=== PATIENT | female | born 1985 | race African-American/Black ===

== ENCOUNTER 2019-08-06 09:01 | Emergency (ER) | payer OTHER, SELFPAY ==
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
[2019-08-06 09:10] VITALS: BP 104/76; PULSE 73; RESP 16; TEMP 36.9; O2SAT 100
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
[2019-08-06 09:34] LABS: Basophils Percent Auto 0.7 % (0.2-1.2); Eosinophils Absolute Auto 0.3 K/mm3 (0-0.3); Eosinophils Percent Auto 4.3 % (0-4.4); Hematocrit 38.3 % (37.0-47.0); Hemoglobin 12.7 g/dL (12.0-15.0); Immature Granulocyte Absolute 0.01 K/mm3 (0.00-0.031); Immature Granulocyte Percent A 0.2 % (0-0.5); Lymphocytes Absolute Auto 2.37 K/mm3 (0.9-3.2); Lymphocytes Percent Auto 40.3 % (18.3-44.2); Mean Corpuscular HGB Conc 33.2 g/dl (32-36); Mean Corpuscular Hemoglobin 28.6 pg (26-34); Mean Corpuscular Volume 86.3 fl (80-100); Mean Platelet Volume 11.4 fl (7.4-10.4); Monocytes Absolute Auto 0.6 K/mm3 (0.1-0.6); Monocytes Percent Auto 10.4 % (2.6-8.5); Neutrophils Absolute Auto 2.6 K/mm3 (1.3-6.7); Neutrophils Percent Auto 44.1 % (45.5-73.1); Platelet Count Result 162 k/mm3 (150-375); Red Blood Count 4.44 M/mm3 (4.2-5.4); Red Cell Distribution Width 15.1 % (11.5-14.5); White Blood Count 5.9 K/mm3 (4.5-10.0)
[2019-08-06 09:44] LABS: INR 1.1; Prothrombin Time 13.4 Seconds (11.1-14.7)
[2019-08-06 09:45] LABS: Partial Thromboplastin Time 32.2 SECONDS (22.3-36.8)
[2019-08-06 09:46] LABS: Alanine Aminotransferase 14 U/L (4-35); Albumin Level 4.3 g/dL (3.5-5.1); Alkaline Phosphatase 80 U/L (38-126); Aspartate Amino Transferase 30 U/L (14-36); Bilirubin,Total 0.5 mg/dL (0.2-1.3); Blood Urea Nitrogen 8 mg/dL (7-17); Carbon Dioxide 27 mmol/L (22-30); Chloride 106 mmol/L (98-107); Estimated CRCL calculation 93 ml/min; Estimated Glomerular Filt Rate > 60; Glucose 91 mg/dL (65-105); Potassium 3.7 mmol/L (3.4-5.0); Sodium 138 mmol/L (137-145)
[2019-08-06 09:59] LABS: Add Urine Microscopic? YES; Appearance Urine Cloudy (Clear); Bacteria Urine Trace /hpf; Bilirubin Urine Negative (Negative); Blood Urine Negative (Negative); Color Urine Yellow (Yellow); Glucose Urine UA Negative (Negative); Ketones Urine Negative (Negative); Leukocyte Esterase Ur Negative LEU/UL (Negative); Mucus Urine Heavy /lpf; Nitrate Urine Negative (Negative); Protein Urine Negative (Negative); Specific Grav Ur 1.024 (1.001-1.035); Squamous Epithelial Cell Urine Few /hpf (Few); WBC Urine 0-3 /hpf
[2019-08-06] MEDS: KETOROLAC 30 MG/ML VIAL (*BKC) IV PUSH (10:28)
[2019-08-06 13:15] VITALS: BP 100/74; PULSE 62; RESP 16
== END 2019-08-06 13:15 | disposition home or self-care (01) ==
PROVIDERS: Emergency Provider Emergency Medicine; PCP Nurse Practitioner
DX: S39.92XA Unspecified injury of lower back, initial encounter (principal); V48.5XXA Car driver injured in noncollision transport accident in traffic accident, initial encounter
CPT/HCPCS: 36415; 74177; 80053; 81001; 81025; 85025; 85610; 85730; 96374; 99284; J1885; J2270; Q9967

== ENCOUNTER 2020-03-16 14:01 | Emergency (ER) | payer OTHER, SELFPAY ==
[2020-03-16 14:08] VITALS: BP 133/81; PULSE 104; RESP 16; TEMP 36.4; O2SAT 99
--- NOTE | 2020-03-16 14:35 | ED.GENADULT ---
HPI - General Adult General Chief complaint: Dental/Oral Stated complaint: DENTAL PAIN Time Seen by Provider: 03/16/20 14:35 Source: patient and RN notes reviewed Mode of arrival: ambulatory Limitations: no limitations History of Present Illness HPI narrative: 34-year-old -[place] female presents with complaints of dental pain for the past 2 days. Trinity reports she is waiting to have dental work done, this morning awaken with swollen face and increase dental pain. Ibuprofen and old Amoxicillin this morning with little relief. Denies any drainage. No fever. No jaw swelling. No neck swelling. No limitation with speaking or swallowing. Has history of dental caries. Has not seen a dentist recently. No dental trauma. No oral lesions. Exacerbating factors consist of chewing on RT side, eating and drinking cold items. No relieving factors. No dentures or bridges. Tolerating liquids well. The patient reports she have not been diagnosed with COVID-19. The patient reports she is not waiting for the results of a COVID-19 lab test. The patient reports she do not have chills, weakness, or fatigue. The patient reports she do not have a new or worsening cough or shortness of breath. Denies chest pain. The patient reports she do not have any rhinorrhea, congestion, sore throat, loss of taste or smell, nausea, vomiting, abdominal pain, and diarrhea. Denies recent traveling. Denies concerns for COVID-19 or exposures been home with limited outdoor exposure except for essential household needs, work, and return home. At this time, patient is not suspected of having COVID-19. Some parts of this dictation were generated by voice recognition software and may contain typographical and/or grammatical inaccuracies. Related Data Allergies Allergy/AdvReac Type Severity Reaction Status Date / Time Cat Dander Allergy Unknown Unknown Uncoded 08/06/19 09:13 Review of Systems Review of Systems: Narrative: CONSTITUTIONAL: Denies fever, chills, sweats. EYES: Denies visual changes, redness, discharge. ENT: Denies rhinorrhea, congestion, sore throat, otalgia. Complains of RT upper dental pain and facial swelling. CARDIOVASCULAR: Denies chest pain, palpitations, edema. RESPIRATORY: Denies dyspnea, wheezing, cough. GASTROINTESTINAL: Denies abdominal pain, nausea, vomiting, diarrhea. SKIN: Denies rash or itching. MUSCULOSKELETAL: Denies acute back pain, joint pain, or myalgia. NEUROLOGIC: Denies numbness or focal weakness. PSYCHIATRIC: Denies anxiety or depression. All systems reviewed & are unremarkable except as noted in HPI and below. PMFSH Past Medical History Medical History (Updated 03/16/20 @ 16:15 by ARDEN Mancera) Anemia Asthma delivery delivered Normal vaginal delivery X1 Surgical History Surgical History (Updated 03/16/20 @ 16:15 by ARDEN Mancera) H/O section X3 Family History Family History (Updated 03/16/20 @ 16:16 by ARDEN Mancera) Father Unknown family medical history Mother Hypertension Smoker in home Social History Social History (Updated 03/16/20 @ 16:19 by ARDEN Mancera) Smoking packs per day: 1 Smoking cigarettes per day: 20.0 Years smoked: 23 Smoking pack-years: 23.00 Smoking status: Current every day smoker Tobacco type: cigarettes Second hand tobacco smoke exposure: Yes Alcohol intake: current Substance use: current Substance use type: marijuana Living arrangements: with family Occupation/Education: occupation Gender identity (if verbalized by the patient): Female Sexual Orientation (if Verbalized by the Patient): Straight or Heterosexual Comments At time of signature, agree with nurse past medical, surgical, social, and family history. There is no relevant family history pertinent to the presenting complaint. Exam Narrative: Exam Narrative: GENERAL: This is a well-nourished, well-developed patie
== END 2020-03-16 14:53 | disposition home or self-care (01) ==
PROVIDERS: Emergency Provider Nurse Practitioner Family
DX: K04.7 Periapical abscess without sinus (principal); K02.9 Dental caries, unspecified; F17.210 Nicotine dependence, cigarettes, uncomplicated; J45.909 Unspecified asthma, uncomplicated
CPT/HCPCS: 99213; G0463

== ENCOUNTER 2020-03-18 12:02 | Emergency (ER) | payer OTHER, SELFPAY ==
[2020-03-18 12:07] VITALS: BP 100/81; PULSE 81; RESP 18; TEMP 37.1; O2SAT 100
--- NOTE | 2020-03-18 13:28 | ED.DENTAL ---
HPI - Dental/Oral General Chief complaint: Dental/Oral Stated complaint: dental abcess Time Seen by Provider: 03/18/20 12:53 Mode of arrival: ambulatory Limitations: no limitations History of Present Illness HPI Narrative: This is a 34 year old female that presents to the ER for dental infection. Reports she has been struggling with this for the last couple of weeks. Reports pain and swelling around the right upper tooth. She has been on penicillin and amoxicillin for this without relief. Denies fever. MD Complaint: tooth pain Related Data Allergies Allergy/AdvReac Type Severity Reaction Status Date / Time Cat Dander Allergy Unknown Unknown Uncoded 08/06/19 09:13 Review of Systems Review of Systems: Narrative: CONSTITUTIONAL: Denies fever ENT: Reports dentalgia All systems reviewed & are unremarkable except as noted in HPI and below PMFSH Past Medical History Medical History (Updated 03/18/20 @ 15:35 by Lupe Grimm PA-C) Anemia Asthma delivery delivered Normal vaginal delivery X1 Surgical History Surgical History (Updated 03/16/20 @ 16:15 by ARDEN Mancera) H/O section X3 Family History Family History (Updated 03/16/20 @ 16:16 by ARDEN Mancera) Father Unknown family medical history Mother Hypertension Smoker in home Social History Social History (Updated 03/16/20 @ 16:19 by ARDEN Mancera) Smoking packs per day: 1 Smoking cigarettes per day: 20.0 Years smoked: 23 Smoking pack-years: 23.00 Smoking status: Current every day smoker Tobacco type: cigarettes Second hand tobacco smoke exposure: Yes Alcohol intake: current Substance use: current Substance use type: marijuana Gender identity (if verbalized by the patient): Female Exam Narrative: Exam Narrative: GENERAL: Well-appearing, well-nourished, and in no acute distress. HEAD: Normocephalic, atraumatic. EYES: EOMI. ENT: Mucous membranes moist. Oropharynx without tonsillar hypertrophy exudate or other lesions. Tooth number 5 with area of erythema and edema with central fluctuance NECK: Supple. No adenopathy or masses. CHEST: Airway patent EXTREMITIES: Normal range of motion. No edema. SKIN: Warm, dry, no rash. NEURO: No focal deficits. Alert and oriented x3. PSYCH: Normal mood and affect Course Vital Signs Vital signs: Vital Signs Temperature 98.8 F 03/18/20 12:07 Pulse Rate 81 03/18/20 12:07 Respiratory Rate 18 03/18/20 12:07 Blood Pressure 100/81 03/18/20 12:07 Pulse Oximetry 100 03/18/20 12:07 Temperature 98.8 F 03/18/20 12:07 Pulse Rate 81 03/18/20 12:07 Respiratory Rate 18 03/18/20 12:07 Blood Pressure 100/81 03/18/20 12:07 Pulse Oximetry 100 03/18/20 12:07 Procedures Abscess I/D oral: Date of Incision: 03/18/20 Time of Incision: 15:31 Local Anesthetic: none (Cetacaine) Technique: incised with #11 blade Packing used?: none I&D Results: Pus and Blood MDM - Dental/Oral MDM Narrative Medical decision making narrative: Patient presents to the emergency department for dental abscess. Successfully drained in the ED. Will be started on oral antibiotics and was instructed to follow-up with her dentist. She was given warnings to return to the ER Critical Care Time Critical Care Time Critical Care Time: No Discharge Plan Discharge Clinical Impression: Dental abscess Patient Disposition: Home, Self-Care Condition: Stable Instructions: Antibiotic Form, Dental Abscess (ED) Additional Instructions: Return to the Emergency Department if you experience fever >101, increasing swelling and redness of your tooth, difficulty breathing, trouble swallowing, or any other symptoms that are concerning to you Take antibiotic as prescribed. Tylenol or Ibuprofen as needed for pain. You may continue to have some drainage from the abscess. Apply warm compresses to the area an
[2020-03-18 16:13] VITALS: BP 101/71; PULSE 77; RESP 17; O2SAT 100
== END 2020-03-18 16:16 | disposition home or self-care (01) ==
PROVIDERS: Emergency Provider Emergency Medicine
DX: K04.7 Periapical abscess without sinus (principal); J45.909 Unspecified asthma, uncomplicated; Z86.2 Personal history of diseases of the blood and blood-forming organs and certain disorders involving the immune mechanism; F17.210 Nicotine dependence, cigarettes, uncomplicated
CPT/HCPCS: 41800; 99283; A9270